=== PATIENT | female | born 1940 | race Caucasian/White ===

== ENCOUNTER 2016-07-19 10:01 | Emergency (ER) | payer OTHER, MEDICARE ==
[2016-07-19 10:44] VITALS: BP 193/78; PULSE 86; RESP 20; TEMP 97.9; O2SAT 96
--- NOTE | 2016-07-19 11:20 | UCPHY ---
H & P Time Seen by Provider: 07/19/16 10:53 Patient Type: New HPI/ROS: CHIEF COMPLAINT: I have shingles HISTORY OF PRESENT ILLNESS: 75-year-old female history of diabetes, history of zoster x3 in the same location in the left mid thoracic region awoke with pain described as a burning tingling sensation followed dermatomal distribution in the same location. She describes it as feeling exactly the same as my usual shingles. She notes increasing life stress, decreased sleep, related to taking care of a family member. She denies: Chest pain, abdominal pain, fever , chills, nausea, vomiting, flu-like symptoms. Her diabetes is controlled. She is visiting from [facility]. PHYSICAL EXAM (Prior to examination, patient consented to physical exam, hands were washed and my usual and customary physical exam procedures followed) 1) GENERAL: Well-developed, well-nourished, alert and oriented. Appears to be in no acute distress. 2) HEAD: Normocephalic 3) HEENT: sclera anicteric 4) LUNGS: Breathing comfortably. 5) SKIN: on the patient's back left side approximately T10 level patient has to vesicles which appear to followed dermatomal distribution. No signs of cellulitis. There is no involvement of the chest or breast area. Smoking Status: Never smoked Constitutional: Initial Vital Signs Temperature (C) 36.6 C 07/19/16 10:38 Heart Rate 86 07/19/16 10:38 Respiratory Rate 20 07/19/16 10:38 Blood Pressure 193/78 H 07/19/16 10:38 O2 Sat (%) 96 07/19/16 10:38 O2 Delivery Mode Room Air Allergies/Adverse Reactions: No Known Allergies Allergy (Unverified 07/19/16 10:44) Home Medications: Medication Instructions Recorded Allopurinol 07/19/16 Glipizide 07/19/16 Losartan Potassium 07/19/16 Metformin HCl 07/19/16 Metoprolol Succinate Xr 07/19/16 Pilogletazone 07/19/16 Valacyclovir HCl [Valtrex] 1,000 mg PO TID #21 tab 07/19/16 MDM/Departure - MDM ED Course/Re-evaluation: Patient describes and has clinical findings which correlate highly for zoster. Symptoms started within the past 24 hours. Think she is an appropriate candidate for outpatient therapy with antiviral therapy. Her diabetes is controlled. We had a lengthy discussion regarding the importance close follow- up. She has no evidence of encephalopathy. Should she develop fevers, chills, altered mentation or any other symptoms she needs to return to the closest emergency department immediately. She feels comfortable and she is agreeable with this plan. - Depart Disposition: Home, Routine, Self-Care Clinical Impression: Zoster Qualifiers: Herpes zoster complications: without complications Qualifier Code: (B02.9) Zoster without complications Condition: Good Instructions: Shingles (ED) Additional Instructions: Go to the closest emergency department if you develop chest pain, abdominal pain , fever, chills, difficulty walking, headache or any other symptoms that concern you Prescriptions: Valacyclovir HCl [Valtrex] 1,000 mg PO TID #21 tab Referrals: Winnie Iraheta MD [Medical Doctor] - 2-3 days, call for appt. - PQRS PQRS Measurement: 134: Depression screening and followup, PRIME MD-PHQ2 (12 years and older) Over the last 2 weeks, how often have you been bothered by any of the following problems? 1. Feeling down, depressed, or hopeless? 2. Little interest or pleasure in doing things? Patient answered no to both 1 and 2 130: Documentation of medications. Reviewed all patient medications, doses, route and frequency. 226: Do you smoke? No. 47: 65 and older: Advanced care planning. No advanced directive 51: 18 years old and older with diagnosis of COPD, spirometry performance. Patient has no history of COPD 52: 18 years old and older with COPD and symptoms of COPD or FEV1<60% predicted prescribed a B Agonist. Not applicable
== END 2016-07-19 11:38 | disposition home or self-care (01) ==
LOC: CED 10:01
DX: B02.9 Zoster without complications (principal); E11.9 Type 2 diabetes mellitus without complications
CPT/HCPCS: 99203-PO; G0463-PO